=== PATIENT | male | born 1965 | race Caucasian/White ===

== ENCOUNTER 2024-02-23 13:32 | Outpatient (RCR) | payer OTHER, SELFPAY ==
[2024-02-23 14:00] VITALS: BP 135/69
[2024-02-23 16:08] LABS: ALT (SGPT) 28 U/L (0-50); AST (SGOT) 41 U/L (17-59); Albumin 4.6 g/dl (3.5-5.0); Alkaline Phosphatase 71 U/L (38-126); Blood Urea Nitrogen 25 mg/dl (9-20); Calcium 9.8 mg/dl (8.4-10.2); Carbon Dioxide 25 mmol/L (22-30); Chloride 99 mmol/L (98-107); Glucose 92 mg/dl (70-99); Potassium 3.8 mmol/L (3.5-5.1); Sodium 137 mmol/L (135-145); Total Protein 7.5 g/dl (6.3-8.2); eGFR > 60.00
== END 2024-03-06 23:59 | disposition home or self-care (01) ==
LOC: OID 13:32
PROVIDERS: ATTENDING PHYSICIAN Internal Medicine Cardiovascular Disease; FAMILY PHYSICIAN Family Medicine
DX: I34.0 Nonrheumatic mitral (valve) insufficiency (principal); I48.3 Typical atrial flutter; Z95.0 Presence of cardiac pacemaker; Z85.07 Personal history of malignant neoplasm of pancreas
CPT/HCPCS: 36591; 80053